=== PATIENT | male | born 1955 | race Two or more races ===

== ENCOUNTER 2017-10-31 17:58 | Emergency (ER) | payer OTHER ==
[~2017-10-31] VITALS: Ht 180.3 cm; Wt 98.7 kg
--- NOTE | 2017-10-31 18:11 | NUR ---
Patient arrived in full C-Spine precautions with hard C-collar and backboard in place. ED MD notified.
--- NOTE | 2017-10-31 18:14 | NUR ---
BIB RA in c-spine c/o R hip, R knee pain s/p slip and fall at grocery store, Denies LOC, neck, or back pain. vss.
--- NOTE | 2017-10-31 19:00 | NUR ---
C-spine cleared by ER MD. Collar and backboard removed. Patient able to move all extremities before and after backboard removal.
--- NOTE | 2017-10-31 19:02 | NUR ---
md bedside for pt eval. Pt taken off of c-spine precautions and off of EMS backboard.
--- NOTE | 2017-10-31 19:05 | NUR ---
RECEIVED REPORT FROM TOM PALMER FOR [facility]ON.
[2017-10-31] MEDS ORDERED: MORPHINE SULFATE INJ 4 MG/ML DISP.SYRIN ONE (19:09)
--- NOTE | 2017-10-31 19:21 | NUR ---
pt refused 8mg of morphine im stating "i have no pain right now". made aware.
[2017-10-31] MEDS ORDERED: MORPHINE SULFATE INJ 2 MG/ML DISP.SYRIN IM ONE (19:30)
[2017-10-31] MEDS ORDERED: IBUPROFEN 400 MG TABLET PO ONE (21:00)
[2017-10-31] MEDS ORDERED: IBUPROFEN 400 MG TABLET ONE (21:21)
--- NOTE | 2017-10-31 22:30 | NUR ---
Patient discharged to home in stable condition. Written and verbal after care instructions along with RX given. Patient verbalizes understanding of instruction. VSS upon discharge.
[2017-10-31 22:31] VITALS: BP 142/82
== END 2017-10-31 22:32 | disposition home or self-care (01) ==
LOC: ER 18:00
DX: S70.01XA Contusion of right hip, initial encounter (principal); S80.01XA Contusion of right knee, initial encounter; E11.9 Type 2 diabetes mellitus without complications; E78.5 Hyperlipidemia, unspecified; W01.0XXA Fall on same level from slipping, tripping and stumbling without subsequent striking against object, initial encounter; Y93.89 Activity, other specified; Y92.512 Supermarket, store or market as the place of occurrence of the external cause; Y99.8 Other external cause status
CPT/HCPCS: 72100; 73502; 73560; 99284; A4606; Z7610; J2270